=== PATIENT | male | born 1985 | race Caucasian/White ===

== ENCOUNTER 2017-04-01 15:11 | Emergency (ER) | payer OTHER ==
[2017-04-01] MEDS: IBUPROFEN 800 MG TAB PO (17:30)
== END 2017-04-01 18:05 | disposition home or self-care (01) ==
LOC: FTE 15:11
DX: R19.7 Diarrhea, unspecified (principal); R50.9 Fever, unspecified; J34.89 Other specified disorders of nose and nasal sinuses; R05 Cough; R11.2 Nausea with vomiting, unspecified
CPT/HCPCS: 99283